=== PATIENT | female | born 1970 | race Caucasian/White ===

== ENCOUNTER 2024-10-11 07:15 | Inpatient (IN) | payer OTHER, MEDICAID ==
[~2024-10-11] VITALS: Ht 157.5 cm; Wt 93.4 kg
[2024-10-11 07:19] VITALS: O2SAT 99
[2024-10-11 08:01] LABS: BASOPHILS % 0.7 % (0.0-2.0); EOSINOPHILS % 2.8 % (0.0-5.0); HEMATOCRIT. 41.3 % (36.0-48.0); HEMOGLOBIN. 14.4 g/dL (12.0-16.0); LYMPHOCYTES % 28.6 % (20.0-50.0); MEAN PLATELET VOLUME 7.0 fl (7.4-10.4); MONOCYTES % 6.7 % (2.0-8.0); NEUTROPHILS % 61.2 % (40.0-76.0); PLATELET 332 x1000/uL (130-400); RED BLOOD CELL COUNT 4.77 mill/uL (4.2-5.4); RED CELL DISTRIBUTION WIDTH 13.5 % (11.6-14.6)
[2024-10-11] MEDS: SODIUM CHLORIDE 0.9% 1,000 ML IV ONE (08:11)
[2024-10-11] MEDS: ONDANSETRON HCL 4MG/2ML INJ IV ONE (08:11)
[2024-10-11 08:17] LABS: CREATININE 0.8 mg/dL (0.6-1.0); UREA NITROGEN BLOOD 8 mg/dL (9-23)
[2024-10-11 08:18] LABS: TROPONIN I HIGH SENSITIVITY < 4 ng/L (3.0-34)
[2024-10-11] MEDS ORDERED: ONDANSETRON HCL 4MG/2ML INJ IV PRN (09:15)
[2024-10-11] MEDS ORDERED: IPRATROPIUM/ALBUTEROL 0.5-3(2.5)MG/3ML NEB HHN PRN (09:15)
[2024-10-11] MEDS ORDERED: HYDROCODONE/ACETAMINOPHEN 5/325MG TABLET PO PRN (09:15)
[2024-10-11] MEDS ORDERED: NALOXONE HCL 0.4MG/ML VIAL IV PRN (09:30)
[2024-10-11 09:59] LABS: CLARITY URINE CLEAR (CLEAR); COLOR URINE YELLOW (YELLOW); GLUCOSE URINE NEGATIVE (NEGATIVE); KETONES URINE NEGATIVE (NEGATIVE); LEUKOCYTE ESTERASE URINE NEGATIVE (NEGATIVE); NITRITE URINE NEGATIVE (NEGATIVE); OCCULT BLOOD URINE NEGATIVE (NEGATIVE); PH URINE 7.0 (4.5-8.0); PROTEIN URINE NEGATIVE (NEGATIVE); SPECIFIC GRAVITY URINE 1.006 (1.005-1.030); UROBILINOGEN URINE 0.2 E.U./dL (0.2-1.0)
[2024-10-11 10:00] VITALS: BP 143/71; PULSE 64; RESP 18; TEMP 36.8; O2SAT 100
[2024-10-11 10:18] VITALS: BP 143/71; PULSE 64; RESP 18; TEMP 36.8072
[2024-10-11] MEDS: ENOXAPARIN 40MG/0.4ML SYR SUBCUT SCH (11:52)
[2024-10-11 12:00] VITALS: BP_SYST 145; BP_SYST 146; BP_SYST 155; BP_DIAS 74; BP_DIAS 76; PULSE 65; RESP 18; TEMP 36.5; O2SAT 100
[2024-10-11 12:09] LABS: ASPARTATE AMINOTRANSFERASE 25 IU/L (<34); BILIRUBIN DIRECT 0.2 mg/dL (<=3.0); BILIRUBIN TOTAL 0.6 mg/dL (0.1-1.0); HEPATITIS C AB NON REACTIVE (Neg) (Negative); PROTEIN TOTAL 7.2 g/dL (6.0-8.3)
[2024-10-11 16:00] VITALS: BP 136/61; PULSE 71; RESP 20; TEMP 36.7; O2SAT 99
[2024-10-11] MEDS ORDERED: IOHEXOL-350 100 ML BOTTLE ONE (16:05)
[2024-10-11 17:18] LABS: CREATINE KINASE MB FRACTION < 0.5 ng/mL (0.5-3.6)
[2024-10-11 17:19] LABS: TROPONIN I HIGH SENSITIVITY < 4 ng/L (3.0-34)
[2024-10-11] MEDS: AMLODIPINE 2.5MG TABLET PO SCH (22:09)
[2024-10-12 02:01] LABS: CREATINE KINASE MB FRACTION < 0.5 ng/mL (0.5-3.6); TROPONIN I HIGH SENSITIVITY < 4 ng/L (3.0-34)
[2024-10-12 04:00] VITALS: BP_SYST 132; BP_SYST 148; BP_SYST 149; BP_DIAS 69; BP_DIAS 81; BP_DIAS 82; PULSE 65; RESP 18; TEMP 36.8; O2SAT 99
[2024-10-12 07:39] LABS: CREATININE 0.8 mg/dL (0.6-1.0); UREA NITROGEN BLOOD 12 mg/dL (9-23)
[2024-10-12 07:49] LABS: BASOPHILS % 0.9 % (0.0-2.0); EOSINOPHILS % 2.6 % (0.0-5.0); HEMATOCRIT. 43.0 % (36.0-48.0); HEMOGLOBIN. 14.5 g/dL (12.0-16.0); LYMPHOCYTES % 28.0 % (20.0-50.0); MEAN PLATELET VOLUME 7.3 fl (7.4-10.4); MONOCYTES % 7.3 % (2.0-8.0); NEUTROPHILS % 61.2 % (40.0-76.0); PLATELET 335 x1000/uL (130-400); RED BLOOD CELL COUNT 4.97 mill/uL (4.2-5.4); RED CELL DISTRIBUTION WIDTH 13.9 % (11.6-14.6)
[2024-10-12 08:00] VITALS: BP 120/57; PULSE 64; RESP 18; TEMP 36.4; O2SAT 98
[2024-10-12 08:01] LABS: *AMPHETAMINES SCREEN URINE NEGATIVE (NEGATIVE); *BARBITURATES SCREEN URINE NEGATIVE (NEGATIVE); *BENZODIAZEPINES SCREEN URINE NEGATIVE (NEGATIVE); *COCAINE SCREEN URINE NEGATIVE (NEGATIVE)
[2024-10-12 08:02] LABS: CANNABINOID URINE SCREEN NEGATIVE (NEGATIVE); ECSTASY MDMA SCREEN URINE NEGATIVE (NEGATIVE); METHADONE URINE SCREEN NEGATIVE (NEGATIVE); OPIATES URINE SCREEN NEGATIVE (NEGATIVE); PHENCYCLIDINE URINE SCREEN NEGATIVE (NEGATIVE)
[2024-10-12 12:00] VITALS: BP_SYST 115; BP_SYST 63; BP_DIAS 63; PULSE 64; RESP 18; TEMP 36.4; O2SAT 99
[2024-10-12 16:00] VITALS: BP 127/73; PULSE 69; RESP 18; TEMP 36.4; O2SAT 99
[2024-10-12] MEDS ORDERED: AMLO2.5T45 PO (16:39)
[2024-10-12] MEDS ORDERED: PROT20 MT (16:39)
[2024-10-12 19:26] VITALS: BP 127/73; PULSE 69; RESP 18; TEMP 97.5
== END 2024-10-12 20:54 | disposition home or self-care (01) | DRG 312 ==
LOC: ER 07:15 → 7WST 08:47
PROVIDERS: ADMIT Internal Medicine; ATTEND Internal Medicine
DX: R55 Syncope and collapse (principal); K21.9 Gastro-esophageal reflux disease without esophagitis; I10 Essential (primary) hypertension; K76.0 Fatty (change of) liver, not elsewhere classified; E66.9 Obesity, unspecified; Z68.37 Body mass index [BMI] 37.0-37.9, adult
CPT/HCPCS: 36415; 71045; 71275; 74177; 80048; 80076; 80305; 81003; 82550; 82553; 83036; 84443; 84484; 85025; 85379; 86705; 87340; 93005; 93306; 93880; 99285; J1650; J2405; J7030; Q9967